=== PATIENT | male | born 1955 | race Caucasian/White ===

== ENCOUNTER 2025-01-27 21:48 | Inpatient (IN) | payer MEDICAID, OTHER ==
[~2025-01-27] VITALS: Ht 167.6 cm; Wt 69.6 kg
[~2025-01-27 21:48] MED LIST: AMLO10TA4 MT; AMLO5TAB88 PO; APIX2.5T PO; ASCO-339 MT; ASPI-1497 MT; CALC667C PO; CINA30TA5 PO; CLON0.2T PO; COR25 MT; FERR-71 MT; GABA-1180 PO; HYDR100T11 MT; LIP40 MT; LISI20TA31 PO; MEGE40TA5 PO; METO-396 PO; MINO2.5T19 MT; TRAM50TA3 PO; ZOLP5TAB8 PO
[2025-01-28] VITALS (12 sets, daily range): BP systolic 149–179; BP diastolic 52–78; PULSE 76–87; RESP 15–20; TEMP 36.5–36.78072; O2SAT 95–98
[2025-01-28 00:38] LABS: BASOPHILS % 0.4 % (0.0-2.0); HEMATOCRIT. 22.6 % (42.0-52.0); HEMOGLOBIN. 7.2 g/dL (14.0-18.0); LYMPHOCYTES % 17.7 % (20.0-50.0); MEAN CORPUSCULAR HEMOGLOBIN 28.3 pg (28.0-32.0); MEAN CORPUSCULAR VOLUME 88.5 fL (80.0-94.0); MEAN PLATELET VOLUME 8.8 fl (7.4-10.4); MONOCYTES % 6.6 % (2.0-8.0); NEUTROPHILS % 72.3 % (40.0-76.0); PLATELET 247 x1000/uL (130-400); RED BLOOD CELL COUNT 2.56 mill/uL (4.7-6.1); RED CELL DISTRIBUTION WIDTH 19.9 % (11.6-14.6); WHITE BLOOD COUNT 6.6 x1000/uL (4.5-11.0)
[2025-01-28 00:47] LABS: CHLORIDE 101 mEq/L (98-107); SODIUM 138 mEq/L (136-145)
[2025-01-28 00:48] LABS: CARBON DIOXIDE 24 mEq/L (21-32)
[2025-01-28 00:53] LABS: GLUCOSE 82 mg/dL (70-105); UREA NITROGEN BLOOD 74 mg/dL (9-23)
[2025-01-28 01:39] LABS: CREATININE 9.3 mg/dL (0.6-1.3); POTASSIUM 6.2 mEq/L (3.5-5.1); TROPONIN I HIGH SENSITIVITY 81 ng/L (3.0-53)
[2025-01-28 03:40] LABS: TROPONIN I HIGH SENSITIVITY 79 ng/L (3.0-53)
[2025-01-28] MEDS: SODIUM ZIRCONIUM CYCLOSILICATE 10GM/PACKET PO NR (04:48)
[2025-01-28 07:56] LABS: HEPATITIS B SURFACE ANTIGEN NEGATIVE (Negative)
[2025-01-28 08:16] LABS: HEPATITIS A AB IGM NEGATIVE (Negative)
[2025-01-28 08:17] LABS: HEPATITIS B CORE AB IGM NEGATIVE (Negative); HEPATITIS C AB NON REACTIVE (Neg) (Negative)
[2025-01-28] MEDS ORDERED: ONDANSETRON HCL 4MG/2ML INJ IV PRN (09:15)
[2025-01-28] MEDS ORDERED: GUAIFENESIN 200MG/10ML SUGAR FREE UDC PO PRN (09:15)
[2025-01-28] MEDS ORDERED: DOCUSATE SODIUM 100MG CAPSULE PO PRN (09:15)
[2025-01-28] MEDS ORDERED: IPRATROPIUM/ALBUTEROL 0.5-3(2.5)MG/3ML NEB HHN PRN (09:15)
[2025-01-28 10:21] LABS: IRON 82 ug/dL (65-175)
[2025-01-28 10:22] LABS: LDL CHOLESTEROL 54 mg/dL (5-100); TRIGLYCERIDE 79 mg/dL (0-150)
[2025-01-28 10:23] LABS: ALBUMIN 3.3 g/dL (3.2-4.8); CHOLESTEROL 98 mg/dL (<200); HDL CHOLESTEROL 23 mg/dL (>55); PHOSPHORUS 5.9 mg/dL (2.5-4.9)
[2025-01-28 10:24] LABS: TOTAL IRON BINDING CAPACITY 235 ug/dl (250-425)
[2025-01-28 10:26] LABS: T4 FREE 0.98 ng/dL (0.89-1.76); THYROID STIMULATING HORMONE 3.16 uIU/mL (0.55-4.78)
[2025-01-28 11:20] LABS: FERRITIN 756 ng/mL (22-322)
[2025-01-28 11:22] LABS: FOLIC ACID (FOLATE) SERUM 19.95 ng/mL (>5.38); VITAMIN B12 SERUM 407 pg/mL (211-911)
[2025-01-28 19:05] LABS: CREATINE KINASE MB FRACTION 1.1 ng/mL (0.5-3.6)
[2025-01-28] MEDS: ATORVASTATIN CALCIUM 40MG TABLET PO SCH (21:19)
[2025-01-28] MEDS: FERROUS SULFATE 325MG TABLET PO SCH (21:19)
[2025-01-28] MEDS: CARVEDILOL 12.5MG TABLET PO SCH (21:20)
[2025-01-29] VITALS (8 sets, daily range): BP systolic 127–171; BP diastolic 45–78; PULSE 70–79; RESP 18–20; TEMP 36.4–37.2; O2SAT 93–97
[2025-01-29 00:04] LABS: CREATINE KINASE MB FRACTION 0.9 ng/mL (0.5-3.6)
[2025-01-29] MEDS: HYDRALAZINE 20MG/ML VIAL IV PRN (00:19)
[2025-01-29 06:28] LABS: CHLORIDE 103 mEq/L (98-107); POTASSIUM 5.3 mEq/L (3.5-5.1); SODIUM 139 mEq/L (136-145)
[2025-01-29 06:29] LABS: CALCIUM 9.2 mg/dL (8.7-10.4); CARBON DIOXIDE 26 mEq/L (21-32)
[2025-01-29 06:34] LABS: GLUCOSE 65 mg/dL (70-105); UREA NITROGEN BLOOD 53 mg/dL (9-23)
[2025-01-29 06:36] LABS: ALANINE AMINOTRANSFERASE 9 IU/L (10-49); ALBUMIN 3.4 g/dL (3.2-4.8); ASPARTATE AMINOTRANSFERASE 14 IU/L (<34); BILIRUBIN TOTAL < 0.2 mg/dL (0.1-1.0); PROTEIN TOTAL 5.5 g/dL (6.0-8.3)
[2025-01-29 06:48] LABS: HEMATOCRIT 21.9 % (42.0-52.0); HEMOGLOBIN 7.1 g/dL (14.0-18.0); MEAN CORPUSCULAR HEMOGLOBIN 28.6 pg (28.0-32.0); MEAN CORPUSCULAR HGB CONC 32.4 g/dL (31.0-37.0); MEAN CORPUSCULAR VOLUME 88.3 fL (80.0-94.0); PLATELET 257 x1000/uL (130-400); RED BLOOD CELL COUNT 2.48 mill/uL (4.7-6.1); RED CELL DISTRIBUTION WIDTH 19.1 % (11.6-14.6); WHITE BLOOD COUNT 6.3 x1000/uL (4.5-11.0)
[2025-01-29] MEDS: SODIUM ZIRCONIUM CYCLOSILICATE 10GM/PACKET PO SCH (09:49)
[2025-01-29] MEDS: MINOXIDIL 2.5MG TABLET PO SCH (09:50)
[2025-01-29] MEDS: ASPIRIN 81MG EC TABLET PO SCH (09:50)
[2025-01-29] MEDS: AMLODIPINE 10MG TABLET PO SCH (09:50)
[2025-01-29] MEDS ORDERED: NIFE-32 PO (16:47)
[2025-01-29] MEDS: ENOXAPARIN 30MG/0.3ML SYR SUBCUT SCH (17:09)
[2025-01-29] MEDS: NIFEDIPINE XL 60MG TAB PO SCH (17:09)
[2025-01-29] MEDS: MELATONIN 3MG TABLET PO SCH (22:32)
[2025-01-30] VITALS (11 sets, daily range): BP systolic 117–167; BP diastolic 44–74; PULSE 58–88; RESP 16–20; TEMP 36.1–36.6696; O2SAT 93–99
[2025-01-30] MEDS: ACETAMINOPHEN 325MG TABLET PO PRN (06:19)
[2025-01-30 06:52] LABS: EOSINOPHILS % 4.1 % (0.0-5.0); HEMOGLOBIN. 7.9 g/dL (14.0-18.0); LYMPHOCYTES % 21.1 % (20.0-50.0); MEAN CORPUSCULAR HEMOGLOBIN 28.8 pg (28.0-32.0); MEAN CORPUSCULAR HGB CONC 32.8 g/dL (31.0-37.0); MEAN PLATELET VOLUME 9.4 fl (7.4-10.4); MONOCYTES % 6.5 % (2.0-8.0); NEUTROPHILS % 65.3 % (40.0-76.0); PLATELET 278 x1000/uL (130-400); RED BLOOD CELL COUNT 2.73 mill/uL (4.7-6.1); RED CELL DISTRIBUTION WIDTH 19.5 % (11.6-14.6)
[2025-01-30 07:05] LABS: POTASSIUM 5.2 mEq/L (3.5-5.1)
[2025-01-30 07:06] LABS: CALCIUM 9.5 mg/dL (8.7-10.4)
[2025-01-30 18:44] LABS: POTASSIUM 4.6 mEq/L (3.5-5.1)
[2025-01-30 18:45] LABS: CALCIUM 9.3 mg/dL (8.7-10.4)
[2025-01-30 18:57] LABS: CREATININE 6.3 mg/dL (0.6-1.3)
[2025-01-31] VITALS: BP 167/56; PULSE 81; RESP 20; TEMP 36; O2SAT 93
[2025-01-31 04:00] VITALS: BP 175/57; PULSE 74; RESP 20; TEMP 36.1; O2SAT 93
[2025-01-31] MEDS ORDERED: CLONIDINE 0.1MG TABLET PO PRN (05:15)
[2025-01-31] MEDS: CLONIDINE 0.1MG TABLET PO NR (05:21)
[2025-01-31 06:44] LABS: POTASSIUM 4.5 mEq/L (3.5-5.1)
[2025-01-31 06:46] LABS: CALCIUM 9.3 mg/dL (8.7-10.4)
[2025-01-31 06:51] LABS: CREATININE 7.1 mg/dL (0.6-1.3)
[2025-01-31 06:55] LABS: HEMOGLOBIN 7.3 g/dL (14.0-18.0)
[2025-01-31 08:00] VITALS: BP 175/58; PULSE 72; RESP 20; TEMP 37.5; O2SAT 98
[2025-01-31 12:00] VITALS: BP 144/53; PULSE 69; RESP 20; TEMP 36.5; O2SAT 98
[2025-01-31] MEDS: HYDRALAZINE HCL 25MG TABLET PO SCH (14:42)
[2025-01-31 16:00] VITALS: BP 125/49; PULSE 66; RESP 20; TEMP 36.8; O2SAT 96
[2025-01-31 20:03] VITALS: BP 120/41; PULSE 67; RESP 19; TEMP 36.8; O2SAT 95
[2025-02-01] VITALS (10 sets, daily range): BP systolic 112–180; BP diastolic 38–68; PULSE 60–86; RESP 18–19; TEMP 36.4–38; O2SAT 94–100
[2025-02-01] MEDS: MELATONIN 3MG TABLET PO PRN (01:02)
[2025-02-01] MEDS: ACETAMINOPHEN 325MG TABLET PO PRN (04:16)
[2025-02-01 14:03] LABS: POTASSIUM 4.3 mEq/L (3.5-5.1)
[2025-02-01 14:04] LABS: CALCIUM 9.5 mg/dL (8.7-10.4)
[2025-02-01 14:25] LABS: CREATININE 5.8 mg/dL (0.6-1.3)
== END 2025-02-01 17:51 | disposition home or self-care (01) | DRG 199 ==
LOC: ER 21:48 → 8WST 01-28 04:17 → MERGE 01-28 04:17
PROVIDERS: ADMIT Internal Medicine; ATTEND Internal Medicine
PROC: 5A1D70Z Performance of Urinary Filtration, Intermittent, Less than 6 Hours Per Day (ICD-10-PCS; principal; 2025-01-28)
PROC: 5A1D70Z Performance of Urinary Filtration, Intermittent, Less than 6 Hours Per Day (ICD-10-PCS; 2025-01-30)
PROC: 5A1D70Z Performance of Urinary Filtration, Intermittent, Less than 6 Hours Per Day (ICD-10-PCS; 2025-02-01)
DX: I16.0 Hypertensive urgency (principal); I21.A1 Myocardial infarction type 2; N18.6 End stage renal disease; E83.39 Other disorders of phosphorus metabolism; D63.1 Anemia in chronic kidney disease; E87.5 Hyperkalemia; I13.2 Hypertensive heart and chronic kidney disease with heart failure and with stage 5 chronic kidney disease, or end stage renal disease; E11.22 Type 2 diabetes mellitus with diabetic chronic kidney disease; E78.5 Hyperlipidemia, unspecified; I50.9 Heart failure, unspecified; I25.2 Old myocardial infarction; Z79.899 Other long term (current) drug therapy; Z91.148 Patient's other noncompliance with medication regimen for other reason; Z99.2 Dependence on renal dialysis; Z79.82 Long term (current) use of aspirin
CPT/HCPCS: 36415; 71045; 80048; 80053; 80061; 82040; 82553; 82607; 82728; 82746; 83036; 83540; 83550; 83605; 83735; 84100; 84145; 84439; 84443; 84484; 85014; 85018; 85025; 85027; 86705; 86709; 87340; 90935; 93005; 93970; 97162; 97166; 99291; J0360; J1650

== ENCOUNTER 2025-02-14 13:28 | Inpatient (IN) | payer MEDICAID, OTHER ==
[~2025-02-14] VITALS: Ht 165.1 cm; Wt 54.9 kg
[~2025-02-14 13:28] MED LIST changes: +AMLO-905 MT; -AMLO10TA4 MT; -AMLO5TAB88 PO; -CALC667C PO; -CINA30TA5 PO; -CLON0.2T PO; -GABA-1180 PO; -LISI20TA31 PO; -MEGE40TA5 PO; -METO-396 PO; +NIFE-32 PO; -TRAM50TA3 PO; -ZOLP5TAB8 PO
[2025-02-14] MEDS: HYDRALAZINE 20MG/ML VIAL IV STA (14:45)
[2025-02-14] MEDS: ASPIRIN 81MG TABLET PO ONE (14:45)
[2025-02-14] MEDS: ONDANSETRON HCL 4MG/2ML INJ IV STA (14:45)
[2025-02-14] MEDS: CLONIDINE 0.1MG TABLET PO ONE (14:45)
[2025-02-14] MEDS: MORPHINE SULFATE 4 MG/ML INJ (FOR IV/IM USE) IV STA (14:45)
[2025-02-14 15:08] LABS: CHLORIDE 95 mEq/L (98-107); SODIUM 133 mEq/L (136-145)
[2025-02-14 15:09] LABS: CALCIUM 10.5 mg/dL (8.7-10.4); CARBON DIOXIDE 21 mEq/L (21-32)
[2025-02-14 15:10] LABS: BASOPHILS % 1.1 % (0.0-2.0); EOSINOPHILS % 0.1 % (0.0-5.0); HEMATOCRIT. 24.8 % (42.0-52.0); HEMOGLOBIN. 7.9 g/dL (14.0-18.0); LYMPHOCYTES % 11.6 % (20.0-50.0); MEAN CORPUSCULAR HEMOGLOBIN 28.3 pg (28.0-32.0); MEAN CORPUSCULAR HGB CONC 31.9 g/dL (31.0-37.0); MEAN CORPUSCULAR VOLUME 88.9 fL (80.0-94.0); MEAN PLATELET VOLUME 8.5 fl (7.4-10.4); MONOCYTES % 5.1 % (2.0-8.0); NEUTROPHILS % 82.1 % (40.0-76.0); PLATELET 290 x1000/uL (130-400); RED BLOOD CELL COUNT 2.79 mill/uL (4.7-6.1); RED CELL DISTRIBUTION WIDTH 19.8 % (11.6-14.6); WHITE BLOOD COUNT 6.4 x1000/uL (4.5-11.0)
[2025-02-14 15:14] LABS: INR 1.1; PROTHROMBIN TIME 11.4 sec (9.6-11.0); UREA NITROGEN BLOOD 79 mg/dL (9-23)
[2025-02-14 15:38] LABS: CREATININE 16.3 mg/dL (0.6-1.3); GLUCOSE 19 mg/dL (70-105); POTASSIUM 6.4 mEq/L (3.5-5.1); TROPONIN I HIGH SENSITIVITY 112 ng/L (3.0-53)
[2025-02-14] MEDS ORDERED: CALCIUM GLUCONATE 1,000 MG in DEXT 5% WATER 100 ML IV ONE (15:45)
[2025-02-14] MEDS: INSULIN REGULAR (HUMULIN R) 1000UNITS/10ML VIAL IV ONE (15:52)
[2025-02-14] MEDS: DEXTROSE 50% WATER 50ML SYRINGE IV ONE ×3 (16:05)
[2025-02-14] MEDS: CALCIUM GLUCONATE 1GM PREMIX 50 ML IV NR ×2 (16:06→16:15)
[2025-02-14] MEDS: CEFTRIAXONE 2GM/50ML 50 ML IV ONE (16:18)
[2025-02-14 16:32] LABS: TROPONIN I HIGH SENSITIVITY 100 ng/L (3.0-53)
[2025-02-14] MEDS: AZITHROMYCIN 500MG/250ML 250 ML IV STA (16:42)
[2025-02-14] MEDS: HYDRALAZINE 20MG/ML VIAL IV PRN (17:08)
[2025-02-14 19:30] VITALS: BP 197/74; PULSE 79; RESP 20; TEMP 36.5; O2SAT 98
[2025-02-14 20:00] VITALS: BP 183/64; PULSE 74; RESP 19; TEMP 36.7; O2SAT 98
[2025-02-14 22:28] VITALS: BP 183/64; PULSE 74; RESP 19; TEMP 36.8
[2025-02-14 23:00] VITALS: BP 180/65; PULSE 83; RESP 20; TEMP 36.61404; O2SAT 99
[2025-02-14 23:30] VITALS: BP 181/67; PULSE 86
[2025-02-14] MEDS ORDERED: NALOXONE HCL 0.4MG/ML VIAL IV PRN (23:30)
[2025-02-14] MEDS: HYDROCODONE/ACETAMINOPHEN 10/325MG TABLET PO PRN (23:57)
[2025-02-15] VITALS (16 sets, daily range): BP systolic 117–183; BP diastolic 41–107; PULSE 68–97; RESP 16–28; TEMP 36.44736–37; O2SAT 97–100
[2025-02-15] MEDS: SODIUM ZIRCONIUM CYCLOSILICATE 10GM/PACKET PO SCH (00:04)
[2025-02-15] MEDS: CALCIUM GLUCONATE 1GM PREMIX 50 ML IV NR (01:54)
[2025-02-15] MEDS: NIFEDIPINE XL 60MG TAB PO SCH (01:55)
[2025-02-15] MEDS: HYDRALAZINE HCL 100MG TABLET PO SCH (01:55)
[2025-02-15] MEDS: DEXTROSE 50% WATER 50ML SYRINGE IV PRN (06:14)
[2025-02-15] MEDS ORDERED: DEXT 10% WATER 1,000 ML IV SCH (08:00)
[2025-02-15] MEDS: FOLIC ACID/VITAMIN B COMP W-C TABLET PO SCH (08:51)
[2025-02-15] MEDS: SEVELAMER CARBONATE 800 MG TABLET PO SCH (08:51)
[2025-02-15] MEDS: METOPROLOL TARTRATE 50MG TABLET PO SCH (08:52)
[2025-02-15] MEDS: DEXT 10% WATER 1,000 ML IV SCH (09:58)
[2025-02-15 11:21] LABS: BASOPHILS % 2.7 % (0.0-2.0); HEMATOCRIT. 22.8 % (42.0-52.0); HEMOGLOBIN. 7.3 g/dL (14.0-18.0); LYMPHOCYTES % 12.4 % (20.0-50.0); MEAN CORPUSCULAR HEMOGLOBIN 28.4 pg (28.0-32.0); MEAN CORPUSCULAR HGB CONC 31.9 g/dL (31.0-37.0); MEAN PLATELET VOLUME 8.6 fl (7.4-10.4); MONOCYTES % 11.2 % (2.0-8.0); NEUTROPHILS % 71.7 % (40.0-76.0); PLATELET 243 x1000/uL (130-400); RED BLOOD CELL COUNT 2.56 mill/uL (4.7-6.1); RED CELL DISTRIBUTION WIDTH 19.7 % (11.6-14.6); WHITE BLOOD COUNT 5.7 x1000/uL (4.5-11.0)
[2025-02-15 11:37] LABS: POTASSIUM 4.5 mEq/L (3.5-5.1)
[2025-02-15 11:38] LABS: CALCIUM 9.6 mg/dL (8.7-10.4)
[2025-02-15 11:46] LABS: PHOSPHORUS 5.6 mg/dL (2.5-4.9)
[2025-02-15 12:22] LABS: CREATININE 11.1 mg/dL (0.6-1.3)
[2025-02-15 12:32] LABS: HEPATITIS B SURFACE ANTIGEN NEGATIVE (Negative)
[2025-02-15 12:53] LABS: HEPATITIS C AB NON REACTIVE (Neg) (Negative)
[2025-02-15] MEDS: ASPIRIN 81MG TABLET PO SCH (16:39)
[2025-02-15] MEDS: ISOSORBIDE MONONITRATE 30MG TABLET SR 24HR PO SCH (16:40)
[2025-02-15] MEDS: ENOXAPARIN 60MG/0.6ML SYR SUBCUT SCH (16:40)
[2025-02-15] MEDS ORDERED: INFLUENZA VACCINE 05/PF 0.5 ML SYRINGE IM ONE (21:00)
[2025-02-16] VITALS (8 sets, daily range): BP systolic 122–172; BP diastolic 46–105; PULSE 68–77; RESP 13–18; TEMP 36.7–37.2252; O2SAT 96–99
[2025-02-16] MEDS: ZOLPIDEM TARTRATE 5MG TABLET PO PRN (01:55)
[2025-02-16 07:24] LABS: CHLORIDE 99 mEq/L (98-107); POTASSIUM 3.7 mEq/L (3.5-5.1); SODIUM 137 mEq/L (136-145)
[2025-02-16 07:25] LABS: CARBON DIOXIDE 32 mEq/L (21-32)
[2025-02-16 07:30] LABS: GLUCOSE 92 mg/dL (70-105); UREA NITROGEN BLOOD 26 mg/dL (9-23)
[2025-02-16 07:32] LABS: PHOSPHORUS 5.4 mg/dL (2.5-4.9)
[2025-02-16 07:40] LABS: BASOPHILS % 2.8 % (0.0-2.0); DIFFERENTIAL COMMENT 0; EOSINOPHILS % 2.8 % (0.0-5.0); HEMATOCRIT 21.5 % (42.0-52.0); HEMATOCRIT. 21.5 % (42.0-52.0); LYMPHOCYTES % 19.3 % (20.0-50.0); MEAN CORPUSCULAR HEMOGLOBIN 28.7 pg (28.0-32.0); MEAN CORPUSCULAR VOLUME 89.5 fL (80.0-94.0); MEAN PLATELET VOLUME 8.8 fl (7.4-10.4); MONOCYTES % 13.5 % (2.0-8.0); NEUTROPHILS % 61.6 % (40.0-76.0); PLATELET 215 x1000/uL (130-400); RED CELL DISTRIBUTION WIDTH 19.5 % (11.6-14.6)
[2025-02-16 07:58] LABS: HEMOGLOBIN 6.9 g/dL (14.0-18.0); HEMOGLOBIN. 6.9 g/dL (14.0-18.0)
[2025-02-16 09:02] LABS: CREATININE 7.8 mg/dL (0.6-1.3)
[2025-02-16] MEDS: EPOETIN ALFA-EPBX 4,000 UNIT/ML VIAL SUBCUT NR (22:29)
[2025-02-17] VITALS (32 sets, daily range): BP systolic 136–232; BP diastolic 46–83; PULSE 65–101; RESP 13–24; TEMP 36.50292–37.2; O2SAT 90–99
[2025-02-17 08:15] LABS: CHLORIDE 98 mEq/L (98-107); POTASSIUM 4.3 mEq/L (3.5-5.1); SODIUM 135 mEq/L (136-145)
[2025-02-17 08:18] LABS: CARBON DIOXIDE 25 mEq/L (21-32)
[2025-02-17 08:19] LABS: CALCIUM 9.2 mg/dL (8.7-10.4)
[2025-02-17 08:23] LABS: GLUCOSE 71 mg/dL (70-105); UREA NITROGEN BLOOD 31 mg/dL (9-23)
[2025-02-17 08:25] LABS: ALANINE AMINOTRANSFERASE < 7 IU/L (10-49); ALBUMIN 3.4 g/dL (3.2-4.8); ASPARTATE AMINOTRANSFERASE 16 IU/L (<34)
[2025-02-17 08:26] LABS: BILIRUBIN DIRECT 0.2 mg/dL (<=3.0); BILIRUBIN TOTAL 0.3 mg/dL (0.1-1.0); PROTEIN TOTAL 5.8 g/dL (6.0-8.3)
[2025-02-17 08:44] LABS: BASOPHILS % 1.9 % (0.0-2.0); EOSINOPHILS % 1.4 % (0.0-5.0); HEMATOCRIT 24.2 % (42.0-52.0); HEMATOCRIT. 24.2 % (42.0-52.0); HEMOGLOBIN 7.7 g/dL (14.0-18.0); HEMOGLOBIN. 7.7 g/dL (14.0-18.0); LYMPHOCYTES % 19.3 % (20.0-50.0); MEAN CORPUSCULAR HEMOGLOBIN 29.9 pg (28.0-32.0); MEAN CORPUSCULAR HGB CONC 31.8 g/dL (31.0-37.0); MEAN PLATELET VOLUME 9.6 fl (7.4-10.4); MONOCYTES % 12.8 % (2.0-8.0); NEUTROPHILS % 64.6 % (40.0-76.0); PLATELET 99 x1000/uL (130-400); RED BLOOD CELL COUNT 2.58 mill/uL (4.7-6.1); RED CELL DISTRIBUTION WIDTH 19.4 % (11.6-14.6); WHITE BLOOD COUNT 7.1 x1000/uL (4.5-11.0)
[2025-02-17] MEDS: AMLODIPINE 5MG TABLET PO SCH (08:46)
[2025-02-17 09:04] LABS: CREATININE 9.6 mg/dL (0.6-1.3)
[2025-02-17 09:12] LABS: MEAN CORPUSCULAR VOLUME 93.9 fL (80.0-94.0)
[2025-02-17] MEDS: CLONIDINE 0.1MG TABLET PO PRN (11:37)
[2025-02-17] MEDS: MORPHINE SULFATE 2 MG/ML INJ (NOT FOR IM USE) IV NR (13:03)
[2025-02-17] MEDS: HYDRALAZINE 20MG/ML VIAL IV PRN (18:23)
[2025-02-17] MEDS: NICARDIPINE 40MG/200ML PREMIX 200 ML IV PRN (20:44)
[2025-02-17] MEDS: ATORVASTATIN CALCIUM 40MG TABLET PO SCH (21:33)
[2025-02-17] MEDS: CLONIDINE 0.3MG TABLET PO SCH (21:33)
[2025-02-18] VITALS (89 sets, daily range): BP systolic 97–178; BP diastolic 29–120; PULSE 41–85; RESP 9–21; TEMP 36.4–37.2; O2SAT 86–99
[2025-02-18 05:19] LABS: CARBON DIOXIDE 31 mEq/L (21-32); CHLORIDE 99 mEq/L (98-107); POTASSIUM 3.1 mEq/L (3.5-5.1); SODIUM 135 mEq/L (136-145)
[2025-02-18 05:20] LABS: CALCIUM 9.5 mg/dL (8.7-10.4)
[2025-02-18 05:21] LABS: BASOPHILS % 1.2 % (0.0-2.0); EOSINOPHILS % 0.3 % (0.0-5.0); HEMATOCRIT. 24.4 % (42.0-52.0); HEMOGLOBIN. 8.1 g/dL (14.0-18.0); LYMPHOCYTES % 8.1 % (20.0-50.0); MEAN CORPUSCULAR HEMOGLOBIN 30.1 pg (28.0-32.0); MEAN CORPUSCULAR HGB CONC 33.1 g/dL (31.0-37.0); MEAN CORPUSCULAR VOLUME 90.8 fL (80.0-94.0); MEAN PLATELET VOLUME 9.1 fl (7.4-10.4); MONOCYTES % 12.5 % (2.0-8.0); NEUTROPHILS % 77.9 % (40.0-76.0); PLATELET 180 x1000/uL (130-400); RED BLOOD CELL COUNT 2.68 mill/uL (4.7-6.1); RED CELL DISTRIBUTION WIDTH 18.8 % (11.6-14.6)
[2025-02-18 05:24] LABS: URIC ACID 2.2 mg/dL (3.7-9.2)
[2025-02-18 05:25] LABS: GLUCOSE 114 mg/dL (70-105); UREA NITROGEN BLOOD 20 mg/dL (9-23)
[2025-02-18 05:27] LABS: PHOSPHORUS 4.1 mg/dL (2.5-4.9)
[2025-02-18 05:45] LABS: CREATININE 6.1 mg/dL (0.6-1.3)
[2025-02-18 06:36] LABS: ERYTHROCYTE SEDIMENTATION RATE 41 mm/hr (0-20)
[2025-02-18] MEDS: POTASSIUM CHLORIDE 20MEQ TABLET SR PO NR (08:10)
[2025-02-18] MEDS: MAGNESIUM 1 G PREMIX 100 ML IV NR (08:13)
[2025-02-19] VITALS (80 sets, daily range): BP systolic 93–161; BP diastolic 31–77; PULSE 46–59; RESP 7–25; TEMP 35.94732–37.1; O2SAT 93–100
[2025-02-19 05:47] LABS: BASOPHILS % 1.1 % (0.0-2.0); DIFFERENTIAL COMMENT 0; LYMPHOCYTES % 17.1 % (20.0-50.0); MEAN CORPUSCULAR HEMOGLOBIN 30.1 pg (28.0-32.0); MEAN CORPUSCULAR HGB CONC 32.6 g/dL (31.0-37.0); MEAN CORPUSCULAR VOLUME 92.2 fL (80.0-94.0); MEAN PLATELET VOLUME 9.7 fl (7.4-10.4); MONOCYTES % 9.2 % (2.0-8.0); NEUTROPHILS % 70.6 % (40.0-76.0); PLATELET 144 x1000/uL (130-400); RED CELL DISTRIBUTION WIDTH 18.8 % (11.6-14.6); WHITE BLOOD COUNT 6.1 x1000/uL (4.5-11.0)
[2025-02-19 05:53] LABS: CARBON DIOXIDE 29 mEq/L (21-32); CHLORIDE 95 mEq/L (98-107); POTASSIUM 4.3 mEq/L (3.5-5.1); SODIUM 133 mEq/L (136-145)
[2025-02-19 05:54] LABS: CALCIUM 9.3 mg/dL (8.7-10.4)
[2025-02-19 05:59] LABS: GLUCOSE 83 mg/dL (70-105); UREA NITROGEN BLOOD 32 mg/dL (9-23)
[2025-02-19 06:22] LABS: CREATININE 7.7 mg/dL (0.6-1.3)
[2025-02-19 06:25] LABS: HEMATOCRIT. 20.3 % (42.0-52.0); HEMOGLOBIN. 6.6 g/dL (14.0-18.0)
[2025-02-19] MEDS ORDERED: METOPROLOL TARTRATE 5MG/5ML VIAL IV PRN (11:15)
[2025-02-19] MEDS ORDERED: LIDOCAINE HCL 1% 10 MG/ML 10ML VIAL ONE (12:51)
[2025-02-19] MEDS ORDERED: SODIUM BICARBONATE 4.2% 2.5MEQ/5ML VIAL IV ONE (12:51)
[2025-02-19 13:16] LABS: HEMATOCRIT 24.5 % (42.0-52.0); HEMOGLOBIN 7.7 g/dL (14.0-18.0)
[2025-02-19 17:00] LABS: BODY FLUID MONOCYTES 2 %
[2025-02-19 17:01] LABS: BODY FLUID RBC 300 /cu mm (0-2000); BODY FLUID WBC 23900 /cu mm (0-200)
[2025-02-20] VITALS (7 sets, daily range): BP systolic 130–198; BP diastolic 41–61; PULSE 60–100; RESP 18; TEMP 36.3–39.3; O2SAT 97–98
[2025-02-20 07:23] LABS: POTASSIUM 3.7 mEq/L (3.5-5.1)
[2025-02-20 07:24] LABS: CALCIUM 9.7 mg/dL (8.7-10.4)
[2025-02-20 07:54] LABS: CREATININE 6.5 mg/dL (0.6-1.3)
[2025-02-20 07:56] LABS: EOSINOPHILS % 1.1 % (0.0-5.0); HEMATOCRIT. 25.8 % (42.0-52.0); HEMOGLOBIN. 8.5 g/dL (14.0-18.0); LYMPHOCYTES % 14.5 % (20.0-50.0); MEAN CORPUSCULAR HEMOGLOBIN 29.8 pg (28.0-32.0); MEAN CORPUSCULAR HGB CONC 32.9 g/dL (31.0-37.0); MEAN CORPUSCULAR VOLUME 90.6 fL (80.0-94.0); MEAN PLATELET VOLUME 9.5 fl (7.4-10.4); MONOCYTES % 8.8 % (2.0-8.0); NEUTROPHILS % 74.6 % (40.0-76.0); PLATELET 184 x1000/uL (130-400); RED BLOOD CELL COUNT 2.84 mill/uL (4.7-6.1); RED CELL DISTRIBUTION WIDTH 17.8 % (11.6-14.6); WHITE BLOOD COUNT 6.8 x1000/uL (4.5-11.0)
[2025-02-20] MEDS ORDERED: IOHEXOL-350 100 ML BOTTLE ONE (11:50)
[2025-02-20] MEDS: NITROGLYCERIN SPRAY/4.9GM CAN TL NR (13:00)
[2025-02-20] MEDS: CEFTRIAXONE 1GM/50ML 50 ML IV SCH (16:14)
[2025-02-20] MEDS: ACETAMINOPHEN 325MG TABLET PO PRN (18:28)
[2025-02-20] MEDS: DOCUSATE SODIUM 250MG CAPSULE PO SCH (22:14)
[2025-02-21] VITALS (13 sets, daily range): BP systolic 135–186; BP diastolic 55–70; PULSE 54–68; RESP 16–20; TEMP 35.8362–38; O2SAT 97–99
[2025-02-21] MEDS ORDERED: CEPH500C2 MT (10:24)
[2025-02-21] MEDS: EPOETIN ALFA-EPBX 4,000 UNIT/ML VIAL SUBCUT NR (21:11)
[2025-02-21] MEDS ORDERED: ZOLPIDEM TARTRATE 5MG TABLET PO PRN (23:10)
[2025-02-21] MEDS: ZOLPIDEM TARTRATE 5MG TABLET PO PRN (23:18)
[2025-02-22] VITALS: BP 176/58; PULSE 62; RESP 18; TEMP 37.4; O2SAT 99
[2025-02-22 04:00] VITALS: BP 183/64; PULSE 61; RESP 19; TEMP 37; O2SAT 95
[2025-02-22 08:30] VITALS: BP 146/60; PULSE 68; RESP 18; TEMP 36.6; O2SAT 97
[2025-02-22] MEDS: ISOSORBIDE MONONITRATE 30MG TABLET SR 24HR PO NR (10:42)
[2025-02-22 12:00] VITALS: BP 152/60; PULSE 60; RESP 18; TEMP 36.6; O2SAT 100
[2025-02-22] MEDS: ENOXAPARIN 30MG/0.3ML SYR SUBCUT SCH (13:22)
[2025-02-22 16:00] VITALS: BP 129/47; PULSE 50; RESP 18; TEMP 36.4; O2SAT 99
[2025-02-22 20:00] VITALS: BP 167/57; PULSE 49; RESP 18; TEMP 36.7; O2SAT 99
[2025-02-22] MEDS: LACTULOSE 20G/30ML UDC PO SCH (22:19)
[2025-02-23] VITALS (10 sets, daily range): BP systolic 110–177; BP diastolic 48–70; PULSE 47–56; RESP 17–20; TEMP 36.3–36.9; O2SAT 95–100
[2025-02-23] MEDS: ISOSORBIDE MONONITRATE 30MG TABLET SR 24HR PO SCH (08:18)
[2025-02-24] VITALS: BP 173/65; PULSE 61; RESP 16; TEMP 36.4; O2SAT 98
[2025-02-24 04:00] VITALS: BP 183/74; PULSE 57; RESP 18; TEMP 36.5; O2SAT 100
[2025-02-24 08:00] VITALS: BP 140/70; PULSE 18; RESP 20; TEMP 36.7; O2SAT 94
[2025-02-24 16:00] VITALS: BP 154/53; PULSE 51; RESP 19; TEMP 36.6; O2SAT 97
[2025-02-24 20:00] VITALS: BP 100/55; PULSE 52; RESP 17; TEMP 35.9; O2SAT 99
[2025-02-25] VITALS: BP 168/56; PULSE 53; RESP 18; TEMP 36.4; O2SAT 98
[2025-02-25 04:00] VITALS: BP 172/57; PULSE 54; RESP 16; TEMP 36.4; O2SAT 96
[2025-02-25] MEDS: HYDRALAZINE 10 MG in SODIUM CHLORIDE 0.9% 49.5 ML IV PRN (06:03)
[2025-02-25 08:00] VITALS: BP 176/55; PULSE 49; RESP 18; TEMP 36.5; O2SAT 98
[2025-02-25] MEDS: ISOSORBIDE MONONITRATE 60MG TABLET SR 24HR PO SCH (08:57)
[2025-02-25 12:00] VITALS: BP 165/55; PULSE 50; RESP 16; TEMP 36.5; O2SAT 99
[2025-02-25 16:00] VITALS: BP 146/49; PULSE 50; RESP 17; TEMP 36.6; O2SAT 100
[2025-02-25] MEDS: HYDROCODONE/ACETAMINOPHEN 10/325MG TABLET PO PRN (18:50)
[2025-02-25 21:55] VITALS: BP 151/48; PULSE 90; RESP 20; TEMP 36.6; O2SAT 100
[2025-02-26] VITALS (14 sets, daily range): BP systolic 122–177; BP diastolic 41–73; PULSE 47–88; RESP 14–18; TEMP 36.3918–36.7; O2SAT 96–99
[2025-02-26] MEDS: AMLODIPINE 10MG TABLET PO SCH (08:07)
[2025-02-27] VITALS: BP 141/60; PULSE 61; RESP 19; TEMP 36.9; O2SAT 97
[2025-02-27 04:00] VITALS: BP 125/66; PULSE 72; RESP 16; TEMP 36.1; O2SAT 98
[2025-02-27 08:00] VITALS: BP 177/62; PULSE 62; RESP 18; TEMP 36.1; O2SAT 97
[2025-02-27 12:00] VITALS: BP 163/50; PULSE 59; RESP 18; TEMP 36.2; O2SAT 99
[2025-02-27 16:00] VITALS: BP 146/47; PULSE 64; RESP 18; TEMP 36.6; O2SAT 99
[2025-02-27 20:00] VITALS: BP 155/51; RESP 48; TEMP 36.3; O2SAT 95
[2025-02-27] MEDS: ZOLPIDEM TARTRATE 5MG TABLET PO PRN (23:58)
[2025-02-28] VITALS (12 sets, daily range): BP systolic 162–191; BP diastolic 54–72; PULSE 51–96; RESP 16–63; TEMP 36.4–36.7; O2SAT 96–100
[2025-02-28] MEDS: DEXTROSE 5% WATER 1,000 ML IV SCH (05:27)
[2025-02-28 12:27] LABS: BASOPHILS % 1.7 % (0.0-2.0); EOSINOPHILS % 1.8 % (0.0-5.0); HEMATOCRIT. 23.3 % (42.0-52.0); HEMOGLOBIN. 7.7 g/dL (14.0-18.0); LYMPHOCYTES % 14.2 % (20.0-50.0); MEAN CORPUSCULAR HEMOGLOBIN 31.2 pg (28.0-32.0); MEAN CORPUSCULAR HGB CONC 33.2 g/dL (31.0-37.0); MEAN CORPUSCULAR VOLUME 93.8 fL (80.0-94.0); MEAN PLATELET VOLUME 9.6 fl (7.4-10.4); MONOCYTES % 7.4 % (2.0-8.0); NEUTROPHILS % 74.9 % (40.0-76.0); PLATELET 192 x1000/uL (130-400); RED BLOOD CELL COUNT 2.48 mill/uL (4.7-6.1); RED CELL DISTRIBUTION WIDTH 18.3 % (11.6-14.6); WHITE BLOOD COUNT 6.8 x1000/uL (4.5-11.0)
[2025-02-28 12:36] LABS: INR 1.1; PROTHROMBIN TIME 11.4 sec (9.6-11.0)
[2025-02-28 12:40] LABS: POTASSIUM 4.2 mEq/L (3.5-5.1)
[2025-02-28 12:41] LABS: CALCIUM 9.3 mg/dL (8.7-10.4)
[2025-02-28] MEDS: CLONIDINE 0.1MG TABLET PO PRN (20:06)
[2025-03-01] VITALS (9 sets, daily range): BP systolic 123–188; BP diastolic 36–59; PULSE 48–61; RESP 10–20; TEMP 36.3–37.1; O2SAT 96–100
[2025-03-01] MEDS: MECLIZINE 25MG TABLET PO PRN (06:42)
[2025-03-01 07:05] LABS: BASOPHILS % 1.4 % (0.0-2.0); EOSINOPHILS % 1.9 % (0.0-5.0); HEMATOCRIT. 23.5 % (42.0-52.0); HEMOGLOBIN. 7.7 g/dL (14.0-18.0); LYMPHOCYTES % 20.6 % (20.0-50.0); MEAN CORPUSCULAR HGB CONC 32.6 g/dL (31.0-37.0); MEAN CORPUSCULAR VOLUME 94.9 fL (80.0-94.0); MEAN PLATELET VOLUME 9.6 fl (7.4-10.4); MONOCYTES % 9.1 % (2.0-8.0); PLATELET 182 x1000/uL (130-400); RED BLOOD CELL COUNT 2.48 mill/uL (4.7-6.1); RED CELL DISTRIBUTION WIDTH 18.1 % (11.6-14.6)
[2025-03-01] MEDS ORDERED: IOHEXOL-300 100 ML BOTTLE ONE (07:05)
[2025-03-01] MEDS ORDERED: LIDOCAINE HCL 1% 10 MG/ML 10ML VIAL ONE (07:05)
[2025-03-01 07:19] LABS: CREATININE 7.4 mg/dL (0.6-1.3)
[2025-03-01] MEDS ORDERED: NALOXONE HCL 0.4MG/ML VIAL IV PRN (08:45)
[2025-03-02] VITALS (15 sets, daily range): BP systolic 104–188; BP diastolic 44–75; PULSE 51–60; RESP 14–20; TEMP 36.3–37.1; O2SAT 96–99
[2025-03-02] MEDS: CLONIDINE 0.1MG TABLET PO PRN (12:36)
[2025-03-02 18:08] LABS: HEMATOCRIT 22.1 % (42.0-52.0); HEMOGLOBIN 7.3 g/dL (14.0-18.0)
[2025-03-03] VITALS: BP 181/54; PULSE 59; RESP 18; TEMP 35.9; O2SAT 94
[2025-03-03 04:00] VITALS: BP 169/44; PULSE 53; RESP 18; TEMP 36.6; O2SAT 96
[2025-03-03 08:00] VITALS: BP 172/57; PULSE 55; RESP 20; TEMP 36.4; O2SAT 97
[2025-03-03 12:00] VITALS: BP 176/52; PULSE 52; RESP 20; TEMP 36.7; O2SAT 97
[2025-03-03 13:55] LABS: BASOPHILS % 2.2 % (0.0-2.0); EOSINOPHILS % 2.4 % (0.0-5.0); HEMOGLOBIN. 7.2 g/dL (14.0-18.0); LYMPHOCYTES % 18.5 % (20.0-50.0); MEAN CORPUSCULAR HGB CONC 32.9 g/dL (31.0-37.0); MEAN CORPUSCULAR VOLUME 94.3 fL (80.0-94.0); MEAN PLATELET VOLUME 9.6 fl (7.4-10.4); MONOCYTES % 7.5 % (2.0-8.0); NEUTROPHILS % 69.4 % (40.0-76.0); PLATELET 200 x1000/uL (130-400); RED BLOOD CELL COUNT 2.33 mill/uL (4.7-6.1); RED CELL DISTRIBUTION WIDTH 17.9 % (11.6-14.6); WHITE BLOOD COUNT 5.9 x1000/uL (4.5-11.0)
[2025-03-03 14:03] LABS: POTASSIUM 3.6 mEq/L (3.5-5.1)
[2025-03-03 14:04] LABS: CALCIUM 9.1 mg/dL (8.7-10.4)
[2025-03-03 14:42] LABS: CREATININE 7.6 mg/dL (0.6-1.3)
[2025-03-03 16:00] VITALS: BP 122/40; PULSE 51; RESP 18; TEMP 36.6; O2SAT 97
[2025-03-03 20:00] VITALS: BP 134/43; PULSE 48; RESP 19; TEMP 36.4; O2SAT 98
[2025-03-04] VITALS: BP 148/45; PULSE 49; RESP 18; TEMP 37.2; O2SAT 99
[2025-03-04 07:01] LABS: POTASSIUM 4.4 mEq/L (3.5-5.1)
[2025-03-04 07:02] LABS: CALCIUM 9.4 mg/dL (8.7-10.4)
[2025-03-04 07:29] LABS: CREATININE 8.5 mg/dL (0.6-1.3)
[2025-03-04 07:48] LABS: BASOPHILS % 2.9 % (0.0-2.0); EOSINOPHILS % 2.2 % (0.0-5.0); HEMATOCRIT. 22.5 % (42.0-52.0); HEMOGLOBIN. 7.5 g/dL (14.0-18.0); LYMPHOCYTES % 24.2 % (20.0-50.0); MEAN CORPUSCULAR HEMOGLOBIN 31.1 pg (28.0-32.0); MEAN CORPUSCULAR HGB CONC 33.3 g/dL (31.0-37.0); MEAN CORPUSCULAR VOLUME 93.4 fL (80.0-94.0); MEAN PLATELET VOLUME 9.6 fl (7.4-10.4); MONOCYTES % 6.3 % (2.0-8.0); NEUTROPHILS % 64.4 % (40.0-76.0); PLATELET 214 x1000/uL (130-400); RED BLOOD CELL COUNT 2.41 mill/uL (4.7-6.1); RED CELL DISTRIBUTION WIDTH 17.8 % (11.6-14.6); WHITE BLOOD COUNT 4.8 x1000/uL (4.5-11.0)
[2025-03-04 08:00] VITALS: BP 157/46; PULSE 54; RESP 16; TEMP 36.1; O2SAT 96
[2025-03-04 12:00] VITALS: BP 142/49; PULSE 55; RESP 18; TEMP 36; O2SAT 97
[2025-03-04 16:00] VITALS: BP 163/48; PULSE 53; RESP 18; TEMP 36.7; O2SAT 96
[2025-03-04 16:40] VITALS: BP 154/46
[2025-03-04 20:00] VITALS: BP 186/62; PULSE 53; RESP 19; TEMP 36.4; O2SAT 98
[2025-03-05] VITALS (12 sets, daily range): BP systolic 110–200; BP diastolic 40–67; PULSE 44–58; RESP 16–19; TEMP 36.3–37.1; O2SAT 95–100
[2025-03-05] MEDS: NIFEDIPINE XL 60MG TAB PO SCH (21:25)
[2025-03-06] VITALS: BP_SYST 122; BP_SYST 135; BP_DIAS 41; BP_DIAS 51; PULSE 52; PULSE 56; RESP 16; RESP 18; TEMP 36.3; TEMP 36.7; O2SAT 95; O2SAT 99
[2025-03-06] MEDS: ZOLPIDEM TARTRATE 5MG TABLET PO PRN (00:50)
[2025-03-06 04:00] VITALS: BP 125/42; PULSE 76; RESP 16; TEMP 36.8
[2025-03-06 08:00] VITALS: BP 132/49; PULSE 52; RESP 17; TEMP 36.5; O2SAT 98
[2025-03-06 12:00] VITALS: BP 135/47; PULSE 57; RESP 18; TEMP 36.7; O2SAT 97
[2025-03-06 16:00] VITALS: BP 134/52; PULSE 64; RESP 17; TEMP 37.3; O2SAT 97
[2025-03-06 20:00] VITALS: BP 111/38; PULSE 47; RESP 18; TEMP 36.6; O2SAT 96
[2025-03-07] VITALS (13 sets, daily range): BP systolic 132–207; BP diastolic 48–82; PULSE 52–93; RESP 16–18; TEMP 36.1–36.7; O2SAT 96–100
[2025-03-07 06:19] LABS: BASOPHILS % 2.9 % (0.0-2.0); EOSINOPHILS % 2.3 % (0.0-5.0); HEMATOCRIT. 21.5 % (42.0-52.0); HEMOGLOBIN. 7.2 g/dL (14.0-18.0); LYMPHOCYTES % 23.3 % (20.0-50.0); MEAN CORPUSCULAR HEMOGLOBIN 31.6 pg (28.0-32.0); MEAN CORPUSCULAR HGB CONC 33.7 g/dL (31.0-37.0); MEAN CORPUSCULAR VOLUME 93.7 fL (80.0-94.0); MEAN PLATELET VOLUME 9.2 fl (7.4-10.4); MONOCYTES % 6.7 % (2.0-8.0); NEUTROPHILS % 64.8 % (40.0-76.0); PLATELET 222 x1000/uL (130-400); RED BLOOD CELL COUNT 2.29 mill/uL (4.7-6.1); RED CELL DISTRIBUTION WIDTH 17.4 % (11.6-14.6); WHITE BLOOD COUNT 5.2 x1000/uL (4.5-11.0)
[2025-03-07 06:47] LABS: POTASSIUM 4.5 mEq/L (3.5-5.1)
[2025-03-07 06:49] LABS: CALCIUM 8.9 mg/dL (8.7-10.4)
[2025-03-07 08:58] LABS: CREATININE 8.8 mg/dL (0.6-1.3)
[2025-03-07] MEDS ORDERED: ZOLPIDEM TARTRATE 5MG TABLET PO PRN (18:30)
[2025-03-08] VITALS: BP 153/51
[2025-03-08 04:00] VITALS: PULSE 69; RESP 18; TEMP 37.1; O2SAT 99
[2025-03-08 08:00] VITALS: BP 159/51; PULSE 64; RESP 19; TEMP 37.7; O2SAT 98
[2025-03-08 12:00] VITALS: BP 134/45; PULSE 60; RESP 18; TEMP 36.5; O2SAT 96
[2025-03-08 16:00] VITALS: BP 122/40; PULSE 59; RESP 18; TEMP 36.4; O2SAT 95
[2025-03-08 20:00] VITALS: BP 129/47; PULSE 57; RESP 17; TEMP 36.5; O2SAT 100
[2025-03-09] VITALS (15 sets, daily range): BP systolic 114–172; BP diastolic 44–67; PULSE 56–96; RESP 16–20; TEMP 36.55848–37.1; O2SAT 95–99
[2025-03-09 17:15] LABS: MEAN CORPUSCULAR HEMOGLOBIN 31.2 pg (28.0-32.0); MEAN CORPUSCULAR HGB CONC 33.2 g/dL (31.0-37.0); PLATELET 228 x1000/uL (130-400); RED BLOOD CELL COUNT 2.15 mill/uL (4.7-6.1); RED CELL DISTRIBUTION WIDTH 17.2 % (11.6-14.6); WHITE BLOOD COUNT 4.4 x1000/uL (4.5-11.0)
[2025-03-09 17:20] LABS: HEMOGLOBIN. 6.7 g/dL (14.0-18.0)
[2025-03-09 17:21] LABS: DIFFERENTIAL COMMENT 1; HEMATOCRIT. 20.2 % (42.0-52.0); POTASSIUM 4.2 mEq/L (3.5-5.1)
[2025-03-09 17:22] LABS: CALCIUM 8.6 mg/dL (8.7-10.4)
[2025-03-09 17:30] LABS: ANISOCYTOSIS 1+; PLATELET ESTIMATE NORMAL
[2025-03-09 17:48] LABS: CREATININE 7.2 mg/dL (0.6-1.3)
[2025-03-09] MEDS: EPOETIN ALFA-EPBX 4,000 UNIT/ML VIAL SUBCUT SCH (20:00)
[2025-03-10] VITALS (13 sets, daily range): BP systolic 129–190; BP diastolic 36–67; PULSE 48–67; RESP 16–20; TEMP 36.4–36.7; O2SAT 95–97
[2025-03-10 11:19] LABS: HEMATOCRIT. 22.7 % (42.0-52.0); HEMOGLOBIN. 7.8 g/dL (14.0-18.0); MEAN CORPUSCULAR HEMOGLOBIN 31.8 pg (28.0-32.0); MEAN CORPUSCULAR HGB CONC 34.4 g/dL (31.0-37.0); MEAN CORPUSCULAR VOLUME 92.5 fL (80.0-94.0); MEAN PLATELET VOLUME 8.9 fl (7.4-10.4); PLATELET 220 x1000/uL (130-400); RED BLOOD CELL COUNT 2.45 mill/uL (4.7-6.1); RED CELL DISTRIBUTION WIDTH 17.5 % (11.6-14.6); WHITE BLOOD COUNT 5.1 x1000/uL (4.5-11.0)
[2025-03-10 11:21] LABS: POTASSIUM 4.2 mEq/L (3.5-5.1)
[2025-03-10 11:22] LABS: CALCIUM 8.9 mg/dL (8.7-10.4)
[2025-03-10 11:41] LABS: INR 1.1; PROTHROMBIN TIME 11.4 sec (9.6-11.0)
[2025-03-10 11:49] LABS: DIFFERENTIAL COMMENT 1
[2025-03-10 12:10] LABS: CREATININE 7.9 mg/dL (0.6-1.3)
[2025-03-10 15:29] LABS: PLATELET ESTIMATE NORMAL
[2025-03-10] MEDS: HYDROCODONE/ACETAMINOPHEN 5/325MG TABLET PO PRN (15:35)
[2025-03-11 04:00] VITALS: BP 155/52; PULSE 58; RESP 19; TEMP 36.8; O2SAT 98
[2025-03-11 06:55] LABS: BASOPHILS % 3.4 % (0.0-2.0); EOSINOPHILS % 3.6 % (0.0-5.0); HEMATOCRIT. 23.7 % (42.0-52.0); LYMPHOCYTES % 28.1 % (20.0-50.0); MEAN CORPUSCULAR HEMOGLOBIN 31.2 pg (28.0-32.0); MEAN CORPUSCULAR HGB CONC 33.7 g/dL (31.0-37.0); MEAN CORPUSCULAR VOLUME 92.8 fL (80.0-94.0); MEAN PLATELET VOLUME 8.7 fl (7.4-10.4); MONOCYTES % 6.3 % (2.0-8.0); NEUTROPHILS % 58.6 % (40.0-76.0); PLATELET 223 x1000/uL (130-400); POTASSIUM 4.6 mEq/L (3.5-5.1); RED BLOOD CELL COUNT 2.56 mill/uL (4.7-6.1); RED CELL DISTRIBUTION WIDTH 17.3 % (11.6-14.6); WHITE BLOOD COUNT 5.1 x1000/uL (4.5-11.0)
[2025-03-11 07:50] LABS: CREATININE 8.6 mg/dL (0.6-1.3)
[2025-03-11 08:00] VITALS: BP 147/46; PULSE 53; RESP 18; TEMP 36.4; O2SAT 98
[2025-03-11] MEDS: HYDROCODONE/ACETAMINOPHEN 5/325MG TABLET PO NR ×2 (08:46→19:18)
[2025-03-11 12:00] VITALS: BP 171/52; PULSE 58; RESP 20; TEMP 36.6; O2SAT 98
[2025-03-11 16:00] VITALS: PULSE 65; TEMP 36.8; O2SAT 98
[2025-03-11 20:00] VITALS: BP 149/51; PULSE 54; RESP 17; TEMP 36.4; O2SAT 96
[2025-03-11] MEDS ORDERED: MELATONIN 3MG TABLET PO ONE (21:00)
[2025-03-11] MEDS: MELATONIN 3MG TABLET PO PRN (22:20)
[2025-03-12] VITALS (14 sets, daily range): BP systolic 138–179; BP diastolic 45–72; PULSE 47–71; RESP 16–19; TEMP 36.4–37.1; O2SAT 96–100
[2025-03-12 07:53] LABS: POTASSIUM 5.1 mEq/L (3.5-5.1)
[2025-03-12 07:54] LABS: CALCIUM 8.9 mg/dL (8.7-10.4)
[2025-03-12 08:06] LABS: CREATININE 9.7 mg/dL (0.6-1.3)
[2025-03-12 08:08] LABS: BASOPHILS % 3.6 % (0.0-2.0); EOSINOPHILS % 3.9 % (0.0-5.0); LYMPHOCYTES % 24.9 % (20.0-50.0); MEAN CORPUSCULAR HEMOGLOBIN 30.9 pg (28.0-32.0); MEAN CORPUSCULAR HGB CONC 33.3 g/dL (31.0-37.0); MEAN CORPUSCULAR VOLUME 92.6 fL (80.0-94.0); MEAN PLATELET VOLUME 8.9 fl (7.4-10.4); MONOCYTES % 7.5 % (2.0-8.0); NEUTROPHILS % 60.1 % (40.0-76.0); PLATELET 221 x1000/uL (130-400); RED BLOOD CELL COUNT 2.59 mill/uL (4.7-6.1); RED CELL DISTRIBUTION WIDTH 17.1 % (11.6-14.6); WHITE BLOOD COUNT 4.8 x1000/uL (4.5-11.0)
[2025-03-13 04:00] VITALS: BP 106/61; PULSE 57; RESP 16; TEMP 36.7; O2SAT 95
[2025-03-13 08:00] VITALS: BP 157/64; PULSE 58; RESP 19; TEMP 36.6; O2SAT 100
[2025-03-13] MEDS ORDERED: NALOXONE HCL 0.4MG/ML VIAL IV PRN (11:00)
[2025-03-13 12:00] VITALS: BP 159/52; PULSE 53; RESP 19; TEMP 36.5; O2SAT 98
[2025-03-13] MEDS: TRAMADOL 50MG TABLET PO PRN (12:05)
[2025-03-13 16:00] VITALS: BP 155/54; PULSE 60; RESP 19; TEMP 36.4; O2SAT 98
[2025-03-13 20:00] VITALS: BP 147/57; PULSE 56; RESP 18; TEMP 36.6; O2SAT 96
[2025-03-13] MEDS: ZOLPIDEM TARTRATE 5MG TABLET PO PRN (23:25)
[2025-03-14] VITALS (12 sets, daily range): BP systolic 149–213; BP diastolic 49–81; PULSE 49–64; RESP 16–20; TEMP 36.3–36.6; O2SAT 95–100
[2025-03-15] VITALS (7 sets, daily range): BP systolic 133–203; BP diastolic 43–106; PULSE 53–61; RESP 17–20; TEMP 36.4–37.3; O2SAT 95–99
[2025-03-15] MEDS: LACTULOSE 20G/30ML UDC PO NR (19:07)
[2025-03-16] VITALS (14 sets, daily range): BP systolic 150–213; BP diastolic 51–87; PULSE 56–72; RESP 16–18; TEMP 36.22512–37.2; O2SAT 92–100
[2025-03-16] MEDS ORDERED: MINOXIDIL 2.5MG TABLET PO SCH (12:30)
[2025-03-16] MEDS: MINOXIDIL 2.5MG TABLET PO NR (13:10)
[2025-03-16] MEDS: MINOXIDIL 2.5MG TABLET PO SCH (20:59)
[2025-03-17] VITALS: BP 158/56; PULSE 73; RESP 18; TEMP 36.5; O2SAT 92
[2025-03-17 04:00] VITALS: BP 160/62; PULSE 97; RESP 18; TEMP 36.5; O2SAT 91
[2025-03-17 08:00] VITALS: BP 111/57; PULSE 87; RESP 18; TEMP 36.2; O2SAT 96
[2025-03-17 12:00] VITALS: BP 193/66; PULSE 101; RESP 19; TEMP 38.9; O2SAT 97
[2025-03-17 16:00] VITALS: BP 124/51; PULSE 76; RESP 18; TEMP 36.7; O2SAT 97
[2025-03-18] VITALS: BP 136/48; PULSE 59; RESP 18; TEMP 36.2; O2SAT 96
[2025-03-18] MEDS: LORAZEPAM 1MG TABLET PO PRN (00:23)
[2025-03-18 04:00] VITALS: BP 187/77; PULSE 59; RESP 15; TEMP 36.7; O2SAT 83
[2025-03-18 08:00] VITALS: BP 132/59; PULSE 99; RESP 18; TEMP 36.9; O2SAT 97
[2025-03-18 12:00] VITALS: BP 132/60; PULSE 100; RESP 17; TEMP 36.7; O2SAT 99
[2025-03-18 13:17] LABS: CHLORIDE 94 mEq/L (98-107); POTASSIUM 3.9 mEq/L (3.5-5.1); SODIUM 133 mEq/L (136-145)
[2025-03-18 13:18] LABS: CALCIUM 9.3 mg/dL (8.7-10.4); CARBON DIOXIDE 25 mEq/L (21-32)
[2025-03-18 13:23] LABS: GLUCOSE 57 mg/dL (70-105); UREA NITROGEN BLOOD 50 mg/dL (9-23)
[2025-03-18 13:26] LABS: PHOSPHORUS 4.4 mg/dL (2.5-4.9)
[2025-03-18 13:49] LABS: CREATININE 8.8 mg/dL (0.6-1.3)
[2025-03-18 16:00] VITALS: BP 140/67; PULSE 110; RESP 20; TEMP 37.2; O2SAT 96
[2025-03-18] MEDS: ONDANSETRON HCL 4MG/2ML INJ IV PRN (18:13)
[2025-03-18 20:00] VITALS: BP 144/67; PULSE 111; RESP 20; TEMP 36.7; O2SAT 92
[2025-03-18] MEDS ORDERED: NALOXONE HCL 0.4MG/ML VIAL IV PRN (21:00)
[2025-03-18] MEDS: MORPHINE SULFATE 2 MG/ML INJ (NOT FOR IM USE) IV NR (21:16)
[2025-03-19] VITALS (16 sets, daily range): BP systolic 115–185; BP diastolic 46–79; PULSE 102–119; RESP 16–25; TEMP 36.2–37.3; O2SAT 93–98
[2025-03-19] MEDS: HYDROCODONE/ACETAMINOPHEN 10/325MG TABLET PO PRN (01:45)
[2025-03-19] MEDS: DOXEPIN HCL 25MG CAPSULE PO SCH (01:46)
[2025-03-19] MEDS ORDERED: HYDRALAZINE 20MG/ML VIAL IV ONE (12:30)
[2025-03-19 13:09] LABS: MEAN CORPUSCULAR HGB CONC 33.2 g/dL (31.0-37.0); MEAN CORPUSCULAR VOLUME 93.4 fL (80.0-94.0); MEAN PLATELET VOLUME 9.8 fl (7.4-10.4); PLATELET 69 x1000/uL (130-400); RED BLOOD CELL COUNT 2.07 mill/uL (4.7-6.1); RED CELL DISTRIBUTION WIDTH 17.2 % (11.6-14.6); WHITE BLOOD COUNT 15.8 x1000/uL (4.5-11.0)
[2025-03-19] MEDS: PANTOPRAZOLE SODIUM 40 MG/VIAL IV NR (13:09)
[2025-03-19 13:51] LABS: DIFFERENTIAL COMMENT 1; HEMATOCRIT. 19.3 % (42.0-52.0); HEMOGLOBIN. 6.4 g/dL (14.0-18.0)
[2025-03-19] MEDS: HYDRALAZINE 10 MG in SODIUM CHLORIDE 0.9% 49.5 ML IV NR (15:03)
[2025-03-19 17:01] LABS: ANISOCYTOSIS 1+; NUCLEATED RED BLOOD CELLS 2 /100 WBC; PLATELET ESTIMATE DECREASED
[2025-03-19 17:19] LABS: MEAN CORPUSCULAR HEMOGLOBIN 31.3 pg (28.0-32.0); MEAN CORPUSCULAR HGB CONC 33.6 g/dL (31.0-37.0); MEAN CORPUSCULAR VOLUME 93.3 fL (80.0-94.0); MEAN PLATELET VOLUME 9.9 fl (7.4-10.4); PLATELET 52 x1000/uL (130-400); RED BLOOD CELL COUNT 2.03 mill/uL (4.7-6.1); RED CELL DISTRIBUTION WIDTH 17.6 % (11.6-14.6); WHITE BLOOD COUNT 14.7 x1000/uL (4.5-11.0)
[2025-03-19 17:22] LABS: DIFFERENTIAL COMMENT 1
[2025-03-19 17:35] LABS: HEMOGLOBIN. 6.4 g/dL (14.0-18.0)
[2025-03-19] MEDS: DEXTROSE 50% WATER 50ML SYRINGE IV PRN (22:09)
[2025-03-19] MEDS: MINOXIDIL 2.5MG TABLET PO SCH (22:10)
[2025-03-19] MEDS: PANTOPRAZOLE SODIUM 40 MG/VIAL IV SCH (22:10)
[2025-03-19 22:41] LABS: NUCLEATED RED BLOOD CELLS 1 /100 WBC
[2025-03-19 22:42] LABS: ANISOCYTOSIS 1+; PLATELET ESTIMATE DECREASED
[2025-03-20] VITALS (85 sets, daily range): BP systolic 41–198; BP diastolic 13–169; PULSE 81–113; RESP 22–36; TEMP 36.5–38.2; O2SAT 93–100
[2025-03-20] MEDS: BLOOD SUGAR DIAGNOSTIC STRIP TEST SCH (01:20)
[2025-03-20] MEDS: ACETAMINOPHEN 650MG SUPP PR SCH (02:11)
[2025-03-20] MEDS: DEXT 10% WATER 1,000 ML IV SCH (03:33)
[2025-03-20 05:00] LABS: BG BASE EXCESS -3.7 mmol/L (-2.0-3.0); BG DEOXYHEMOGLOBIN 6.3 % (0.0-5.0); BG FRACTION INSPIRED OXYGEN 100; BG HCO3 ACT 20.9 mmol/L (21.0-28.0); BG METHEMOGLOBIN 0.1 % (0.5-1.5); BG OXYGEN SATURATION 93.6 % (94.0-98.0); BG OXYHEMOGLOBIN 91.6 % (94.0-98.0); BG PCO2 35.5 mmHg (35.0-48.0); BG PH 7.388 (7.350-7.450); BG PO2 71.1 mmHg (83.0-108.0); BG SAMPLE SITE RIGHT RADIAL; BG TOTAL HEMOGLOBIN 7.3 g/dL (13.5-17.5)
[2025-03-20 05:33] LABS: CHLORIDE 101 mEq/L (98-107); POTASSIUM 4.1 mEq/L (3.5-5.1); SODIUM 139 mEq/L (136-145)
[2025-03-20 05:34] LABS: CALCIUM 9.3 mg/dL (8.7-10.4); CARBON DIOXIDE 21 mEq/L (21-32)
[2025-03-20 05:38] LABS: IRON 53 ug/dL (65-175)
[2025-03-20 05:39] LABS: GLUCOSE 93 mg/dL (70-105); UREA NITROGEN BLOOD 59 mg/dL (9-23)
[2025-03-20 05:41] LABS: ALANINE AMINOTRANSFERASE 323 IU/L (10-49); ALBUMIN 3.1 g/dL (3.2-4.8); ASPARTATE AMINOTRANSFERASE > 1000 IU/L (<34); BILIRUBIN DIRECT 1.3 mg/dL (<=3.0); BILIRUBIN TOTAL 1.9 mg/dL (0.1-1.0); PHOSPHORUS 3.6 mg/dL (2.5-4.9); TOTAL IRON BINDING CAPACITY 229 ug/dl (250-425)
[2025-03-20 06:01] LABS: CREATININE 7.5 mg/dL (0.6-1.3)
[2025-03-20 06:34] LABS: FOLIC ACID (FOLATE) SERUM > 20.00 ng/mL (>5.38)
[2025-03-20 06:34] LABS: MEAN CORPUSCULAR HEMOGLOBIN 30.7 pg (28.0-32.0); MEAN CORPUSCULAR HGB CONC 32.5 g/dL (31.0-37.0); MEAN CORPUSCULAR VOLUME 94.3 fL (80.0-94.0); MEAN PLATELET VOLUME 9.5 fl (7.4-10.4); RED BLOOD CELL COUNT 2.16 mill/uL (4.7-6.1); RED CELL DISTRIBUTION WIDTH 17.4 % (11.6-14.6); WHITE BLOOD COUNT 13.9 x1000/uL (4.5-11.0)
[2025-03-20 06:45] LABS: DIFFERENTIAL COMMENT 1; HEMATOCRIT. 20.4 % (42.0-52.0); HEMOGLOBIN. 6.6 g/dL (14.0-18.0); PLATELET 22 x1000/uL (130-400)
[2025-03-20 06:47] LABS: VITAMIN B12 SERUM > 2000 pg/mL (211-911)
[2025-03-20] MEDS ORDERED: PIPERACILLIN/TAZO 3.375G/50ML 50 ML IV SCH (08:00)
[2025-03-20] MEDS: NOREPINEPHRINE 8MG/250ML PMX 250 ML IV PRN (08:32)
[2025-03-20] MEDS ORDERED: PANTOPRAZOLE SODIUM 40 MG/VIAL IV SCH (09:00)
[2025-03-20] MEDS: VANCOMYCIN 1.5GM PMX (XELLIA) 300 ML IV SCH (09:18)
[2025-03-20] MEDS: IPRATROPIUM/ALBUTEROL 0.5-3(2.5)MG/3ML NEB HHN SCH (10:05)
[2025-03-20] MEDS ORDERED: IPRATROPIUM/ALBUTEROL 0.5-3(2.5)MG/3ML NEB HHN SCH (12:00)
[2025-03-20] MEDS ORDERED: PROPOFOL 10MG/ML 100ML 100 ML IV PRN (12:15)
[2025-03-20 13:06] LABS: PLATELET ESTIMATE MARKEDLY DECREASED
[2025-03-20 13:07] LABS: ANISOCYTOSIS 2+
[2025-03-20 13:27] LABS: BG BASE EXCESS -8.2 mmol/L (-2.0-3.0); BG CARBOXYHEMOGLOBIN 0.6 % (0.5-1.5); BG DEOXYHEMOGLOBIN 2.1 % (0.0-5.0); BG FRACTION INSPIRED OXYGEN 100; BG HCO3 ACT 17.1 mmol/L (21.0-28.0); BG OXYGEN SATURATION 97.9 % (94.0-98.0); BG OXYHEMOGLOBIN 97.3 % (94.0-98.0); BG PO2 111.1 mmHg (83.0-108.0); BG SAMPLE SITE RIGHT RADIAL; BG TOTAL HEMOGLOBIN 7.3 g/dL (13.5-17.5); BG VENT MODE VENT - AC
[2025-03-20] MEDS ORDERED: ETOMIDATE 2MG/ML 10ML VIAL IV ONE (13:37)
[2025-03-20] MEDS: ACETYLCYSTEINE 200MG/ML 20% VIAL 4ML INH SCH (15:17)
[2025-03-20] MEDS: CEFEPIME 1GM/50ML 50 ML IV SCH (16:42)
[2025-03-20 22:07] LABS: HEMATOCRIT 25.4 % (42.0-52.0); HEMOGLOBIN 8.3 g/dL (14.0-18.0)
[2025-03-20 22:39] LABS: LACTIC ACID 6.8 mmol/L (0.4-2.0)
[2025-03-20] MEDS: PIPERACILLIN/TAZO 3.375G/50ML 50 ML IV SCH (22:47)
[2025-03-21] VITALS (99 sets, daily range): BP systolic 54–163; BP diastolic 19–117; PULSE 71–120; RESP 0–35; TEMP 36.50292–36.78072; O2SAT 71–100
[2025-03-21 06:03] LABS: HEMATOCRIT. 24.8 % (42.0-52.0); HEMOGLOBIN. 8.2 g/dL (14.0-18.0); MEAN CORPUSCULAR HEMOGLOBIN 30.6 pg (28.0-32.0); MEAN CORPUSCULAR HGB CONC 32.9 g/dL (31.0-37.0); MEAN CORPUSCULAR VOLUME 92.8 fL (80.0-94.0); MEAN PLATELET VOLUME 10.2 fl (7.4-10.4); RED BLOOD CELL COUNT 2.67 mill/uL (4.7-6.1); RED CELL DISTRIBUTION WIDTH 18.7 % (11.6-14.6); WHITE BLOOD COUNT 6.1 x1000/uL (4.5-11.0)
[2025-03-21 06:19] LABS: DIFFERENTIAL COMMENT 1
[2025-03-21 06:32] LABS: CHLORIDE 99 mEq/L (98-107); POTASSIUM 3.7 mEq/L (3.5-5.1); SODIUM 135 mEq/L (136-145)
[2025-03-21 06:33] LABS: CARBON DIOXIDE 18 mEq/L (21-32)
[2025-03-21 06:38] LABS: GLUCOSE 143 mg/dL (70-105); TRIGLYCERIDE 89 mg/dL (0-150); UREA NITROGEN BLOOD 80 mg/dL (9-23)
[2025-03-21 06:40] LABS: ALANINE AMINOTRANSFERASE 356 IU/L (10-49); ALBUMIN 2.2 g/dL (3.2-4.8); ASPARTATE AMINOTRANSFERASE 787 IU/L (<34); BILIRUBIN DIRECT 1.6 mg/dL (<=3.0); PROTEIN TOTAL 3.7 g/dL (6.0-8.3)
[2025-03-21 06:41] LABS: CALCIUM 8.4 mg/dL (8.7-10.4)
[2025-03-21 07:03] LABS: CREATININE 7.3 mg/dL (0.6-1.3)
[2025-03-21] MEDS ORDERED: PROPOFOL 10MG/ML 100ML 100 ML IV PRN (10:30)
[2025-03-21] MEDS: DEXTROSE 20% WATER 500 ML IV SCH (10:35)
[2025-03-21 10:48] LABS: PLATELET ESTIMATE MARKEDLY DECREASED; TOXIC VACUOLATION 3+
[2025-03-21 10:50] LABS: ANISOCYTOSIS 1+
[2025-03-21 10:55] LABS: PLATELET 7 x1000/uL (130-400)
[2025-03-21 12:04] LABS: LACTIC ACID 7.9 mmol/L (0.4-2.0)
[2025-03-21 21:40] LABS: HEMATOCRIT. 25.1 % (42.0-52.0); HEMOGLOBIN. 8.1 g/dL (14.0-18.0); MEAN CORPUSCULAR HEMOGLOBIN 30.7 pg (28.0-32.0); MEAN CORPUSCULAR HGB CONC 32.2 g/dL (31.0-37.0); MEAN CORPUSCULAR VOLUME 95.3 fL (80.0-94.0); MEAN PLATELET VOLUME 8.7 fl (7.4-10.4); RED BLOOD CELL COUNT 2.64 mill/uL (4.7-6.1); RED CELL DISTRIBUTION WIDTH 19.8 % (11.6-14.6); WHITE BLOOD COUNT 6.6 x1000/uL (4.5-11.0)
[2025-03-21 21:45] LABS: DIFFERENTIAL COMMENT 1; PLATELET 9 x1000/uL (130-400)
[2025-03-21 21:58] LABS: PLATELET ESTIMATE MARKEDLY DECREASED
[2025-03-21 21:59] LABS: ANISOCYTOSIS 1+
[2025-03-21] MEDS: VANCOMYCIN 500MG PREMIX 100 ML IV SCH (22:56)
[2025-03-22] VITALS (70 sets, daily range): BP systolic 75–176; BP diastolic 33–93; PULSE 38–104; RESP 0–29; TEMP 32.5–33.2; O2SAT 95–98
[2025-03-22] MEDS ORDERED: ACETAMINOPHEN 650MG SUPP PR PRN (00:30)
[2025-03-22] MEDS ORDERED: ACETAMINOPHEN 650MG/20.3ML UDC NG PRN (00:30)
[2025-03-22] MEDS: PHENYLEPHRINE 100 MG in DEXT 5% WATER 240 ML IV PRN (01:11)
[2025-03-22] MEDS: VASOPRESSIN 20 UNIT in SODIUM CHLORIDE 0.9% 99 ML IV PRN (02:07)
[2025-03-22 02:41] LABS: HEMATOCRIT. 24.8 % (42.0-52.0); HEMOGLOBIN. 7.5 g/dL (14.0-18.0); MEAN CORPUSCULAR HEMOGLOBIN 30.2 pg (28.0-32.0); MEAN CORPUSCULAR HGB CONC 30.4 g/dL (31.0-37.0); MEAN CORPUSCULAR VOLUME 99.5 fL (80.0-94.0); RED BLOOD CELL COUNT 2.49 mill/uL (4.7-6.1); RED CELL DISTRIBUTION WIDTH 20.3 % (11.6-14.6); WHITE BLOOD COUNT 4.9 x1000/uL (4.5-11.0)
[2025-03-22 02:42] LABS: CHLORIDE 96 mEq/L (98-107); SODIUM 132 mEq/L (136-145)
[2025-03-22 02:44] LABS: CALCIUM 9.1 mg/dL (8.7-10.4)
[2025-03-22 02:48] LABS: GLUCOSE 116 mg/dL (70-105)
[2025-03-22 02:49] LABS: UREA NITROGEN BLOOD 67 mg/dL (9-23)
[2025-03-22 02:59] LABS: POTASSIUM 6.1 mEq/L (3.5-5.1)
[2025-03-22 03:00] LABS: DIFFERENTIAL COMMENT 1
[2025-03-22 03:01] LABS: CARBON DIOXIDE < 10 mEq/L (21-32)
[2025-03-22 03:02] LABS: PHOSPHORUS 8.5 mg/dL (2.5-4.9)
[2025-03-22] MEDS: SODIUM BICARBONATE 8.4% 50MEQ/50ML SYR IV NR ×2 (04:32→05:25)
[2025-03-22] MEDS: SODIUM ZIRCONIUM CYCLOSILICATE 10GM/PACKET PO NR (04:32)
[2025-03-22] MEDS: DEXTROSE 50% WATER 50ML SYRINGE IV NR (04:32)
[2025-03-22] MEDS: INSULIN REGULAR (HUMULIN R) 1000UNITS/10ML VIAL IV NR (04:37)
[2025-03-22 04:39] LABS: NUCLEATED RED BLOOD CELLS 2 /100 WBC
[2025-03-22 04:45] LABS: MEAN PLATELET VOLUME 8.4 fl (7.4-10.4)
[2025-03-22 04:46] LABS: PLATELET ESTIMATE MARKEDLY DECREASED
[2025-03-22 04:48] LABS: PLATELET 20 x1000/uL (130-400)
[2025-03-22] MEDS: CALCIUM GLUCONATE 100MG/ML 10ML VIAL IV NR (05:21)
[2025-03-22] MEDS ORDERED: CALCIUM CHLORIDE 1GM/10ML SYR IV ONE (07:17)
[2025-03-22] MEDS: ATROPINE SULFATE 1MG/10ML SYR IV SCH (07:54)
[2025-03-22 08:49] LABS: BG BASE EXCESS -26.9 mmol/L (-2.0-3.0); BG CARBOXYHEMOGLOBIN 3.1 % (0.5-1.5); BG DEOXYHEMOGLOBIN 1.8 % (0.0-5.0); BG FRACTION INSPIRED OXYGEN 100; BG HCO3 ACT 4.8 mmol/L (21.0-28.0); BG METHEMOGLOBIN 0.3 % (0.5-1.5); BG OXYGEN SATURATION 98.1 % (94.0-98.0); BG OXYHEMOGLOBIN 94.8 % (94.0-98.0); BG PCO2 31.9 mmHg (35.0-48.0); BG PH 6.795 (7.350-7.450); BG PO2 166.5 mmHg (83.0-108.0); BG SAMPLE SITE LEFT FEMORAL; BG TOTAL HEMOGLOBIN 4.8 g/dL (13.5-17.5); BG VENT MODE VENT - AC
[2025-03-22] MEDS ORDERED: ATROPINE SULFATE 1MG/10ML SYR IV PRN (09:00)
[2025-03-22] MEDS ORDERED: DOPAMINE 400MG/250ML PREMIX 250 ML IV PRN (09:30)
[2025-03-22 10:36] LABS: MEAN CORPUSCULAR HEMOGLOBIN 30.1 pg (28.0-32.0); MEAN PLATELET VOLUME 8.4 fl (7.4-10.4); RED BLOOD CELL COUNT 1.72 mill/uL (4.7-6.1); RED CELL DISTRIBUTION WIDTH 21.7 % (11.6-14.6); WHITE BLOOD COUNT 5.3 x1000/uL (4.5-11.0)
[2025-03-22 10:46] LABS: DIFFERENTIAL COMMENT 1
[2025-03-22 10:52] LABS: HEMOGLOBIN. 5.2 g/dL (14.0-18.0)
[2025-03-22 10:53] LABS: HEMATOCRIT. 19.9 % (42.0-52.0)
[2025-03-22 10:54] LABS: PLATELET 7 x1000/uL (130-400)
[2025-03-22] MEDS ORDERED: NOREPINEPHRINE 32 MG in DEXT 5% WATER 218 ML IV PRN (11:00)
[2025-03-22 11:10] LABS: CHLORIDE 95 mEq/L (98-107); SODIUM 138 mEq/L (136-145)
[2025-03-22 11:11] LABS: CALCIUM 12.2 mg/dL (8.7-10.4)
[2025-03-22 11:16] LABS: UREA NITROGEN BLOOD 64 mg/dL (9-23)
[2025-03-22 11:18] LABS: ALANINE AMINOTRANSFERASE 642 IU/L (10-49); ALBUMIN 1.3 g/dL (3.2-4.8); ASPARTATE AMINOTRANSFERASE > 1000 IU/L (<34); BILIRUBIN TOTAL 1.8 mg/dL (0.1-1.0); LACTIC ACID 31.7 mmol/L (0.4-2.0); PROTEIN TOTAL 2.3 g/dL (6.0-8.3)
[2025-03-22 11:21] LABS: GLUCOSE 302 mg/dL (70-105)
[2025-03-22 11:22] LABS: CARBON DIOXIDE < 10 mEq/L (21-32); CREATININE 5.9 mg/dL (0.6-1.3); POTASSIUM 8.1 mEq/L (3.5-5.1)
[2025-03-22 11:47] LABS: T4 FREE 0.28 ng/dL (0.89-1.76); THYROID STIMULATING HORMONE 9.57 uIU/mL (0.55-4.78)
[2025-03-22] MEDS ORDERED: SODIUM BICARBONATE 150 MEQ in DEXTROSE 5% WATER 850 ML IV SCH (12:00)
[2025-03-22 14:58] LABS: NUCLEATED RED BLOOD CELLS 1 /100 WBC
[2025-03-22 14:59] LABS: ANISOCYTOSIS 3+; PLATELET ESTIMATE MARKEDLY DECREASED
== END 2025-03-22 13:00 | DRG 720 ==
LOC: ER 13:28 → EDBEDREQTM 15:39 → EDBEDREQ 15:39 → 3WST 18:29 → MICUSO 02-17 20:08 → 8WST 02-19 16:51 → 6EST 02-24 14:33 → 5EST 03-19 22:01 → CVICU 03-20 01:22
PROVIDERS: ADMIT Internal Medicine; ATTEND Internal Medicine
PROC: 5A1D70Z Performance of Urinary Filtration, Intermittent, Less than 6 Hours Per Day (ICD-10-PCS; 2025-02-14)
PROC: 5A1D70Z Performance of Urinary Filtration, Intermittent, Less than 6 Hours Per Day (ICD-10-PCS; 2025-02-15)
PROC: 5A1D70Z Performance of Urinary Filtration, Intermittent, Less than 6 Hours Per Day (ICD-10-PCS; 2025-02-17)
PROC: 30233N1 Transfusion of Nonautologous Red Blood Cells into Peripheral Vein, Percutaneous Approach (ICD-10-PCS; 2025-02-18)
PROC: 5A1D70Z Performance of Urinary Filtration, Intermittent, Less than 6 Hours Per Day (ICD-10-PCS; 2025-02-19)
PROC: 0S9D3ZZ Drainage of Left Knee Joint, Percutaneous Approach (ICD-10-PCS; 2025-02-19)
PROC: 5A1D70Z Performance of Urinary Filtration, Intermittent, Less than 6 Hours Per Day (ICD-10-PCS; 2025-02-21)
PROC: 5A1D70Z Performance of Urinary Filtration, Intermittent, Less than 6 Hours Per Day (ICD-10-PCS; 2025-02-23)
PROC: 5A1D70Z Performance of Urinary Filtration, Intermittent, Less than 6 Hours Per Day (ICD-10-PCS; 2025-02-26)
PROC: 5A1D70Z Performance of Urinary Filtration, Intermittent, Less than 6 Hours Per Day (ICD-10-PCS; 2025-02-28)
PROC: B51W1ZZ Fluoroscopy of Dialysis Shunt/Fistula using Low Osmolar Contrast (ICD-10-PCS; 2025-03-01)
PROC: B5181ZZ Fluoroscopy of Superior Vena Cava using Low Osmolar Contrast (ICD-10-PCS; 2025-03-01)
PROC: 5A1D70Z Performance of Urinary Filtration, Intermittent, Less than 6 Hours Per Day (ICD-10-PCS; 2025-03-02)
PROC: 5A1D70Z Performance of Urinary Filtration, Intermittent, Less than 6 Hours Per Day (ICD-10-PCS; 2025-03-05)
PROC: 5A1D70Z Performance of Urinary Filtration, Intermittent, Less than 6 Hours Per Day (ICD-10-PCS; 2025-03-07)
PROC: 5A1D70Z Performance of Urinary Filtration, Intermittent, Less than 6 Hours Per Day (ICD-10-PCS; 2025-03-09)
PROC: 5A1D70Z Performance of Urinary Filtration, Intermittent, Less than 6 Hours Per Day (ICD-10-PCS; 2025-03-12)
PROC: 5A1D70Z Performance of Urinary Filtration, Intermittent, Less than 6 Hours Per Day (ICD-10-PCS; 2025-03-14)
PROC: 5A1D70Z Performance of Urinary Filtration, Intermittent, Less than 6 Hours Per Day (ICD-10-PCS; 2025-03-16)
PROC: 5A1D70Z Performance of Urinary Filtration, Intermittent, Less than 6 Hours Per Day (ICD-10-PCS; 2025-03-19)
PROC: 5A1935Z Respiratory Ventilation, Less than 24 Consecutive Hours (ICD-10-PCS; 2025-03-20)
PROC: 02HV33Z Insertion of Infusion Device into Superior Vena Cava, Percutaneous Approach (ICD-10-PCS; 2025-03-20)
PROC: B548ZZA Ultrasonography of Superior Vena Cava, Guidance (ICD-10-PCS; 2025-03-20)
PROC: 0BH17EZ Insertion of Endotracheal Airway into Trachea, Via Natural or Artificial Opening (ICD-10-PCS; 2025-03-20)
PROC: 30233R1 Transfusion of Nonautologous Platelets into Peripheral Vein, Percutaneous Approach (ICD-10-PCS; principal; 2025-03-21)
PROC: 5A1D70Z Performance of Urinary Filtration, Intermittent, Less than 6 Hours Per Day (ICD-10-PCS; 2025-03-21)
PROC: 5A12012 Performance of Cardiac Output, Single, Manual (ICD-10-PCS; 2025-03-22)
PROC: 4A00X4Z Measurement of Central Nervous Electrical Activity, External Approach (ICD-10-PCS; 2025-03-22)
DX: A41.9 Sepsis, unspecified organism (principal); J96.01 Acute respiratory failure with hypoxia; K72.00 Acute and subacute hepatic failure without coma; J69.0 Pneumonitis due to inhalation of food and vomit; R65.21 Severe sepsis with septic shock; G93.40 Encephalopathy, unspecified; I21.4 Non-ST elevation (NSTEMI) myocardial infarction; K92.0 Hematemesis; D69.6 Thrombocytopenia, unspecified; I16.1 Hypertensive emergency; N18.6 End stage renal disease; Z99.2 Dependence on renal dialysis; I50.9 Heart failure, unspecified; K76.0 Fatty (change of) liver, not elsewhere classified; J45.909 Unspecified asthma, uncomplicated; I13.2 Hypertensive heart and chronic kidney disease with heart failure and with stage 5 chronic kidney disease, or end stage renal disease; M17.0 Bilateral primary osteoarthritis of knee; I46.9 Cardiac arrest, cause unspecified; E87.5 Hyperkalemia; E16.2 Hypoglycemia, unspecified; D62 Acute posthemorrhagic anemia; I82.621 Acute embolism and thrombosis of deep veins of right upper extremity; I25.10 Atherosclerotic heart disease of native coronary artery without angina pectoris; E78.00 Pure hypercholesterolemia, unspecified; M11.20 Other chondrocalcinosis, unspecified site; I42.9 Cardiomyopathy, unspecified; E61.1 Iron deficiency; I48.91 Unspecified atrial fibrillation; Z86.74 Personal history of sudden cardiac arrest
CPT/HCPCS: 20611; 31720; 36415; 36573; 36600; 36901; 71045; 73562; 73700; 75571; 76604; 76881; 80048; 80053; 80061; 80076; 80202; 82375; 82533; 82607; 82746; 82805; 82962; 83036; 83540; 83550; 83605; 83735; 83880; 84100; 84145; 84439; 84443; 84478; 84484; 84550; 85014; 85018; 85025; 85027; 85384; 85651; 86705; 86706; 86850; 86900; 86920; 87077; 87186; 87340; 90686; 90935; 92950; 93005; 93306; 93970; 94003; 94070; 94640; 94664; 95816; 97116; 97162; 97166; 97530; 99285; A4606; C1725; C1769; C1887; J0360; J0456; J0461; J0610; J0692; J0696; J0885; J1265; J1644; J1650; J1815; J2003; J2270; J2371; J2405; J2470; J2543; J2704; J3370; J3475; J3490; J7050; J7060; J7070; J7608; J8597; P9016; P9034; Q9967